=== PATIENT | male | born 1975 | race Caucasian/White ===

== ENCOUNTER → 2017-10-17 | Emergency (ER) | payer OTHER ==
[~2017-10-17] VITALS: Ht 182.9 cm; Wt 130.2 kg
[~2017-10-17] MED LIST: CYCLOBENZAPRINE10 MG PO; KETO10TA2 PO
== END | disposition home or self-care (01) ==
LOC: ER 16:16
DX: M25.561 Pain in right knee (principal)

== ENCOUNTER 2020-06-20 17:02 | Emergency (ER) | payer OTHER ==
[~2020-06-20] VITALS: Ht 185.4 cm; Wt 136.1 kg
[2020-06-20] MEDS ORDERED: ACETAMINOPHEN650 M2 PO (23:19)
[2020-06-20] MEDS ORDERED: MEDROLPACK PO (23:19)
[2020-06-20] MEDS ORDERED: GUAIFENESIN400 MG PO (23:19)
[2020-06-20] MEDS ORDERED: VITAMIN C WIT1000 MG PO (23:19)
== END 2020-06-20 23:40 | disposition home or self-care (01) ==
LOC: ER 17:02
DX: J06.9 Acute upper respiratory infection, unspecified (principal); Z03.818 Encounter for observation for suspected exposure to other biological agents ruled out; R05 Cough; R06.02 Shortness of breath